=== PATIENT | female | born 1935 | race Caucasian/White ===

== ENCOUNTER 2016-08-04 13:17 | Inpatient (IN) ==
[2016-08-04] MEDS ORDERED: MAGNESIUM SULF RIDER 2 GM in PREMIX 1 EACH IV STA (13:35)
[2016-08-04] MEDS ORDERED: DILTIAZEM 50 MG/10 ML VIAL IV STA (13:36)
--- NOTE | 2016-08-04 13:48 | Emergency Department Note ---
Hellen Sherman Hilary, am scribing for, and in the presence of, Seth Clark MD 13: 39. Amber Sherman James D, MD, personally performed the services described in this documentation, ascribed by Dalila Macedo in my presence, and it is both accurate and complete [id number] . Arrival - Arrival Chief Complaint: Shortness of Breath ED Nursing Triage Note: Brought in by EMS sent [facility] for further evaluation of tachycardia. C/o SOB with exertion-onset 2 weeks ago. Denies CP. Mode of Arrival: Stretcher Limitations: No Limitations Source: Patient, RN Notes Reviewed Time Seen by Provider: 08/04/16 13:30 - History of Present Illness HPI Narrative: Pt is a 81 y/o white female brought into the ED via EMS from [facility] for further evaluation of tachycardia. Pt states she has been out of her Sotalol for a few days. She confirms SOB and irregular heartbeats but denies Chest pain. No other complaints or problems stated in the ED. Onset (ago): hour(s) Consistency: constant Severity: mild Severity scale (1-10): 1 Date of Last Menstrual Period: hysterectomy Allergies/Adverse Reactions: Allergies Allergy/AdvReac Type Severity Reaction Status Date / Time morphine AdvReac Mild ITCHING Verified 04/04/16 15:53 Home Medications: Home Medications Medication Instructions Recorded Confirmed Type ALPRAZolam [Xanax Xr] 0.5 mg PO TID PRN 11/26/14 04/06/16 History Esomeprazole Magnesium [Nexium] 40 mg PO DAILY 11/26/14 04/06/16 History Furosemide 40 mg PO DAILY PRN 11/26/14 04/06/16 History Melatonin 5 mg PO BEDTIME PRN 11/26/14 04/06/16 History Sotalol HCl [Betapace AF] 160 mg PO BID 11/26/14 04/06/16 History Senna Tab [Senokot] 8.6 mg PO DAILY PRN 11/28/14 04/04/16 History oxyCODONE ER [OxyCONTIN] 10 mg PO BID 11/28/14 04/06/16 History Valsartan [Diovan] 160 mg PO BEDTIME 04/04/16 04/06/16 History Review of System - Review of System 12 point system: reviewed and no additional remarkable complaints except as stated - Review of System Constitutional: Absent: fever Respiratory: Present: respiratory distress (SOB) Cardiovascular: Present: palpitations Medical,Surgical,& Family Hx - Medical History Cardio: History of: Cardiac Dysrhythmia (AFIB), Hypertension, [place] (09/2015), Cardiovascular Problems (DR POWELL.) Psychological: History of: Anxiety Disorders Neurology: History of: Peripheral Neuropathy No history of: Seizures HEENT: History of: Eye Problem (CATARACT OS) No history of: Dental Problems Rheumatology: History of;: Rheumatoid Arthritis, Rheumatological Problems Respiratory: History of: Bronchitis, Obstructive Sleep Apnea, Respiratory Problems (FLU VAC- YES; PNEU YES) Genitourinary: History of: Bladder Problem (BLADDER TACT), Problems Gastrointestinal: History of: GERD, GI Problems (CONSTIPATION) Musculoskeletal: History of: Back/Neck Problems, Osteoporosis - Surgical History Cardiac Surgeries: Sugical HX of: Cardiac Catheterization (negative) HEENT Surgeries: Surgical HX of: Eye Surgery (REMOVAL CATARACT OD) Abdominal Surgeries: Surgical HX of: Appendectomy Reproductive Surgeries: Surgical HX of;: Hysterectomy Orthopedic Surgeries: Surgical HX of;: Orthopedic Surgery (BACK SURGERY X4 RIGHT KNEE LEFT KNEE), Total Knee Replacement (RIGHT) - Family History Family History: Reports;: Family Heart Disease (PARENTS) - Social History Smoking Status: Never smoker Frequency of Alcohol Use: None Type of Drug Use: None Exam Physical Examination: GENERAL: This is a well-nourished, well-developed in no apparent distress. VITAL SIGNS: Temperature: 97.4 Pulse: 124 Respiratory: 22 Blood Pressure: 97/ 61 O2 Sat: 99 HEENT: Head is normocephalic and atraumatic. Pupils are equally round and reactive to light. Extraocular movement are intact. Oropharynx is benign with moist mucous membranes. NECK: Neck is soft and supple without tenderness. There are no masses. There is no lymphadenopathy. LUNGS: Lungs are clear to auscultation bilaterally. Chest rises symmetrically. There is no chest wall tenderness. CV: Heart is irregularly irregular with rapid rate without murmurs, rubs, or gallops. ABDOMEN: Abdomen is soft, non-tender to palpation. There are no abnormal masses palpated. There is no organomegaly. Bowel sounds are present and active. SKIN: Skin is warm and dry. No rash. EXTREMITIES: Patient has full range of motion without tenderness. There is no pedal edema. NEUROLOGIC: Awake, alert, and oriented x4. Cranial nerves II through XII are grossly intact. There are no motorsensory deficits. PSYCHIATRIC: Normal affect. Normal mood. Vital Signs: Vital Signs Temperature 97.4 F L 08/04/16 13:25 Pulse Rate 124 H 08/04/16 13:25 Respiratory Rate 22 08/04/16 13:25 Blood Pressure 97/61 08/04/16 13:25 O2 Sat by Pulse Oximetry 99 08/04/16 13:25 Course Course Narrative: Patient was given Cardizem bolus and infusion while in the emergency department. - Consultations Consultation #1: Discussed with Dr. Powell. patient will be admitted to his service. Time: 13:47 Results - Labs CBC & BMP: 08/04/16 13:45 08/04/16 13:45 Lab Results: I have reviewed the patients labs Labs: Laboratory Tests 08/04/16 13:45 Troponin I < 0.015 Laboratory Tests 08/04/16 08/04/16 08/04/16 13:45 13:45 13:45 WBC 7.9 RBC 4.85 Hgb 14.1 Hct 42.8 Plt Count 353 MPV 8.7 L INR 1.1 PT Patient/Control Mix 11.4 Circ Anticoag PTT 31.3 Sodium 138 Potassium 4.0 Chloride 102 Carbon Dioxide 26 BUN 28 H Creatinine 1.30 H BUN/Creatinine Ratio 21.00 H Glucose 150 H Troponin I < 0.015 B-Natriuretic Peptide Total Protein 6.8 Albumin/Globulin Ratio 1.0 L 08/04/16 13:45 WBC RBC Hgb Hct Plt Count MPV INR PT Patient/Control Mix Circ Anticoag PTT Sodium Potassium Chloride Carbon Dioxide BUN Creatinine BUN/Creatinine Ratio Glucose Troponin I B-Natriuretic Peptide 130 H Total Protein Albumin/Globulin Ratio - EKG EKG results: interpreted by ERMD - Impressions EKG: Atrial fib with RVR, rate 128, low voltage QRS, nonspecific ST-T wave changes, normal axis. - Diagnostic Findings Procedure: Chest x-ray: image reviewed by me (Chronic scarring in the lungs with improved mild CHF) Disposition Clinical Impression: Atrial fibrillation with RVR, Noncompliance with medications Case discussed with: patient, patient's family Disposition: Still a Patient Time of Disposition: 13:45
[2016-08-04] MEDS ORDERED: DILTIAZEM 100 MG VIAL.ADD IV ONE (13:52)
[2016-08-04] MEDS ORDERED: DILTIAZEM 50 MG/10 ML VIAL IV ONE (13:53)
[2016-08-04 13:54] LABS: Basophils # 0.1 10*3/uL (0.0-0.2); Basophils % 0.6 % (0.0-0.8); Eosinophils # 0.3 10*3/uL (0.0-0.87); Eosinophils % 3.2 % (0.00-10.9); Hematocrit 42.8 VOL% (35.7-47.0); Hemoglobin 14.1 GM/DL (12.0-16.0); Immature Granulocytes % 0.4 %; Immature Granulocytes Absolute 0.03 #; Lymphocytes # 2.3 10*3/uL (1.4-4.0); Mean Corpuscular HGB Conc 32.9 GM/DL (32-36); Mean Corpuscular Hemoglobin 29 PG (27-34); Mean Corpuscular Volume 88.2 FL (87-102); Mean Platelet Volume 8.7 FL (9.6-12.0); Monocytes # 0.7 10*3/uL (0.11-0.8); Monocytes % 8.7 % (1.7-12.7); Neutrophils # 4.6 10*3/uL (1.4-7.4); Neutrophils % 58.1 % (38.7-73.9); Platelet Count 353 T/CUMM (130-400); Red Blood Count 4.85 MC/CUMM (3.8-5.5); Red Cell Distribution Width 15.2 % (9.3-17.3); White Blood Count 7.9 T/CUMM (4-12)
[2016-08-04] MEDS ORDERED: MAGNESIUM SULF RIDER 50 ML IV ONE (13:56)
[2016-08-04 14:07] LABS: INR 1.1; PT Patient Result 11.4 SECS; Partial Thromboplastin Time 31.3 SECS (0-40)
--- NOTE | 2016-08-04 14:07 | XRay Report ---
Portable chest Date: 08/04/2016 Clinical history: Shortness of breath Comparison: 04/04/2016 Technique: Portable AP sitting chest Findings: The heart is borderline in size with arterial calcifications. Reduced parenchymal findings with stable mediastinum. Degenerative changes are noted. Osteopenia. Impression: Chronic scarring in the lungs with improved mild CHF. PROCEDURE INTERPRETED AT [facility] DEPARTMENT OF RADIOLOGY Final Report Signed by: Dr. Willow Glass
[2016-08-04] MEDS: DILTIAZEM INJ 100 MG in SODIUM CHLORIDE 0.9% 100 ML IV SCH (14:13)
[2016-08-04 14:15] LABS: Alanine Aminotransferase 19 U/L (13-56); Albumin 3.4 G/DL (3.4-5.0); Alkaline Phosphatase 80 U/L (45-117); Aspartate Amino Transferase 20 U/L (0-37); Blood Urea Nitrogen 28 MG/DL (7-18); Calcium 9.3 MG/DL (8.5-10.1); Glucose 150 MG/DL (74-106); Osmolality,Calculated 283.7 MOS/KG (273-304); Sodium 138 MMOL/L (136-145); Total Protein 6.8 G/DL (6.4-8.3); Troponin I Only < 0.015 NG/ML (0.00-0.045)
--- NOTE | 2016-08-04 14:53 | EKG Report ---
Stationary ECG Study [facility] Test Date: 08/04/2016 1:27:23 PM Pat Name: YVETTE URRUTIA Department: Room: Gender: F Intelligence Chief: : 1935 Requested by: Seth Oden Order Number: [id number] Reading MD: TERRY MCARTHUR Intervals [place] Rate: 128 P: 999 NC: 0 QRS: 54 QRSD: 106 T: -1 QT: 322 QTc: 398 Interpretive Statements ATRIAL FIBRILLATION WITH RAPID VENTRICULAR RESPONSE WITH ABERRANT CONDUCTION OR VENTRICULAR PREMATURE COMPLEXES LOW QRS VOLTAGE IN PRECORDIAL LEADS INCOMPLETE RIGHT BUNDLE BRANCH BLOCK Electronically Signed On 08-04-16 15:48:16 CDT by TERRY MCARTHUR [email or web address]
[2016-08-04] MEDS ORDERED: DOCUSATE SODIUM 100 MG CAPSULE PO PRN (15:56)
[2016-08-04] MEDS ORDERED: ACETAMINOPHEN 325 MG TABLET PO PRN (15:56)
[2016-08-04] MEDS ORDERED: MAGNESIUM SULF RIDER 4 GM in PREMIX 1 EACH IV PRN (15:56)
[2016-08-04] MEDS ORDERED: ONDANSETRON 4 MG/2 ML VIAL IV PRN (15:56)
[2016-08-04] MEDS ORDERED: MAGNESIUM SULF RIDER 2 GM in PREMIX 1 EACH IV PRN (15:56)
[2016-08-04] MEDS ORDERED: ZALEPLON 5 MG CAPSULE PO PRN (15:56)
[2016-08-04] MEDS ORDERED: NON-FORMULARY MEDICATION (Esomeprazole Magnesium [Nexium] 40 MG) PO PRN (16:05)
[2016-08-04] MEDS ORDERED: SENNA 8.6 MG TABLET PO PRN (16:05)
[2016-08-04] MEDS ORDERED: ALPRAZolam 0.5 MG TABLET PO PRN (16:05)
[2016-08-04 16:59] LABS: Troponin I Only < 0.015 NG/ML (0.00-0.045)
--- NOTE | 2016-08-04 17:37 | Cardiology History & Physical ---
<Latasha Oliveira E - Last Filed: 08/04/16 17:19> Assessment and Plan - Time spent with patient Time spent with patient: Greater than 30 minutes (due to assessment, plan, and documentation) (1) Atrial fibrillation with RVR Status: Chronic Current Visit: Yes (2) Hypertension Status: Acute Current Visit: Yes (3) Obstructive sleep apnea Status: Chronic Current Visit: No (4) COPD (chronic obstructive pulmonary disease) Status: Chronic Current Visit: Yes (5) Overweight Status: Acute Current Visit: No (6) GERD (gastroesophageal reflux disease) Status: Chronic Current Visit: No (7) High risk medication use Status: Chronic Current Visit: No (8) History of cardioversion Status: Chronic Current Visit: No (9) Osteoarthritis Status: Chronic Current Visit: No History of Present Illness Chief complaint: atrial fib with RVR History of present illness: 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 POWELL Ms. Ware, 81F, has risk factors significant for: Hypertension, sedentary lifestyle. History of atrial fibrillation, COPD, sleep apnea (compliant), chronic back pain, iron deficiency anemia requiring transfusion 03/27/2014. She has not been seen in cardiology clinic since 2014 but was treated by Dr. Powell October 2015 while hospitalized surgery. November 01, 2015 underwent Cardiolite stress testing which revealed EF 58%, no scar, no ischemia, low risk scan. Echocardiogram: EF 50-55%, severe tricuspid regurgitation, PAP 60 mmHg, Grade II DD. Patient presented to the [facility] ED brought by EMS from [facility] for evaluation of tachycardia. She had been out of Sotalol for several days. Upon arrival, she was noted to be in atrial fibrillation with rapid ventricular response. IV Cardizem was initiated and her heart rate came under good control. She acknowledges she has had shortness of breath and palpitations for approximately 1-2 weeks. Denies chest pain, heaviness or tightness. She has required cardioversion x 2 in the past. At this time, her heart rate is better controlled today she remains in atrial fibrillation. IV diltiazem continues and we will transition this to an oral dose as well as restarting her Sotalol. Patient has previously been on Coumadin but was stopped. Will further address during the hospital stay as she is a CHARITO VASC SCORE 3. Assessment/Plan: 1. Atrial fibrillation with RVR - Continue with IV Diltiazem and PO Sotalol for rate control. Will continue to monitor. Will further discuss with Dr. Powell and await additional recommendations. 2. Hypertension - Currently well controlled. Will continue to monitor and adjust accordingly. 3. Sleep apnea - Continue CPAP while asleep. 4. COPD - Continue O2 PRN. Home Medications Medication Instructions Recorded Confirmed Type ALPRAZolam [Xanax Xr] 0.5 mg PO TID PRN 11/26/14 08/04/16 History Esomeprazole Magnesium [Nexium] 40 mg PO DAILY PRN 11/26/14 08/04/16 History Furosemide 40 mg PO QAM 11/26/14 08/04/16 History Sotalol HCl [Betapace AF] 160 mg PO BID 11/26/14 08/04/16 History Senna Tab [Senokot] 8.6 mg PO DAILY PRN 11/28/14 08/04/16 History oxyCODONE ER [OxyCONTIN] 10 mg PO BID 11/28/14 08/04/16 History Oxycodone HCl/Acetaminophen 1 each PO Q12H PRN 08/04/16 08/04/16 History [Oxycodone-Acetaminophen 10-325] Valsartan [Valsartan] 80 mg PO DAILY 08/04/16 08/04/16 History Allergies Allergy/AdvReac Type Severity Reaction Status Date / Time morphine AdvReac Mild ITCHING Verified 04/04/16 15:53 - Constitutional Constitutional: Present: fatigue. Absent: anorexia, chills, headache(s), malaise, weakness - EENT Eyes: Absent: blurry vision, diplopia, loss of vision Ears: Absent: decreased hearing, ear discharge, ear pain Nose, mouth and throat: Absent: dysphagia, epistaxis, headache(s), nasal congestion, neck pain, sinus pressure - Cardiovascular Cardiovascular: Present: dyspnea, dyspnea on exertion, palpitations. Absent: chest pain with activity, claudication, edema, radiating jaw, neck or arm pain, lightheadedness - Respiratory Respiratory: Present: dyspnea, dyspnea on exertion. Absent: cough, pain on inspiration - Gastrointestinal Gastrointestinal: Absent: abdominal pain, bloating, constipation, cramping, diarrhea, dysphagia, heartburn, hematemesis, hematochezia, loose stools, melena , nausea, vomiting - Genitourinary Genitourinary: Absent: dysuria, hematuria, urinary frequency, urinary hesitancy , urinary incontinence - Musculoskeletal Musculoskeletal: Absent: arthralgias, limited range of motion, muscle cramps, muscle weakness - Neurological Neurological: Absent: abnormal gait, abnormal speech, behavioral changes, confusion, dizziness, frequent falls, headache(s), paresthesias, syncope - Psychiatric Psychiatric: Absent: anxiety, confusion, depression, memory loss, panic attacks - Endocrine Endocrine: Present: fatigue. Absent: cold intolerance, heat intolerance - Hematologic/Lymphatic Hematologic/Lymphatic: Absent: easy bleeding, easy bruising Medical,Surgical,& Family Hx - Medical History Cardio: History of: Cardiac Dysrhythmia (AFIB), Hypertension, [place] (09/2015), Cardiovascular Problems (DR POWELL.) Psychological: History of: Anxiety Disorders Neurology: History of: Peripheral Neuropathy No history of: Seizures HEENT: History of: Eye Problem (CATARACT OS) No history of: Dental Problems Rheumatology: History of;: Rheumatoid Arthritis, Rheumatological Problems Respiratory: History of: Bronchitis, Obstructive Sleep Apnea, Respiratory Problems (FLU VAC- YES; PNEU YES) Genitourinary: History of: Bladder Problem (BLADDER TACT), Problems Gastrointestinal: History of: GERD, GI Problems (CONSTIPATION) Musculoskeletal: History of: Back/Neck Problems, Osteoporosis - Surgical History Cardiac Surgeries: Sugical HX of: Cardiac Catheterization (negative) HEENT Surgeries: Surgical HX of: Eye Surgery (REMOVAL CATARACT OD) Abdominal Surgeries: Surgical HX of: Appendectomy Reproductive Surgeries: Surgical HX of;: Hysterectomy Orthopedic Surgeries: Surgical HX of;: Orthopedic Surgery (BACK SURGERY X4 RIGHT KNEE LEFT KNEE), Total Knee Replacement (RIGHT) - Family History Family History: Reports;: Family Heart Disease (PARENTS) - Social History Smoking Status: Never smoker Frequency of Alcohol Use: None Type of Drug Use: None Lives With:: Alone Functional capacity: independent ambulation Cardiology Physical Exam - Constitutional Vitals: Vital Signs Temp Pulse Resp BP Pulse Ox 98.0 F 83 20 99/73 97 08/04/16 16:02 08/04/16 16:02 08/04/16 16:02 08/04/16 16:02 08/04/16 16:02 Intake and Output 08/04/16 08/04/16 08/04/16 06:59 14:59 22:59 Intake Total 50 / 50 Balance 50 / 50 Intake: IV 50 / 50 Magnesium Sulf John 2 gm 50 / 50 /50 ml In Premix 1 Each @ 25 mls/hr IV 1X ED STA Rx#:[id number] Other: Weight 213 lb 215 lb 5 oz Patient Weight 08/05/16 06:59 Weight 215 lb 5 oz Exam: General appearance: Pleasant and cooperative. Normal weight, no acute distress. - Head Head exam: Present: normal inspection, normocephalic, atraumatic. Absent: hematoma, laceration - Eye Eye exam: Present: EOMI. Absent: conjunctival injection, nystagmus, periorbital swelling, scleral icterus, laceration to eyelids Pupils: Present: PERRL. Absent: constricted, dilated, fixed, irregular, unequal - ENT ENT exam: Present: normal exam, normal external ear exam - Neck Neck exam: Present: normal inspection. Absent: lymphadenopathy, meningismus, tenderness, thyromegaly - Respiratory Respiratory exam: Present: clear to auscultation bilaterally. Absent: accessory muscle use, chest wall tenderness - Cardiovascular Cardiovascular exam: Present: Irregular rate and rhythm. Absent: carotid bruit , gallop, JVD, rubs - GI/Abdominal GI/Abdominal exam: Present: normal bowel sounds, soft. Absent: distended, firm , guarding, hernia, mass, tenderness, rebound. - Extremities Exam Extremities exam: Present: normal inspection, normal capillary refill. Upper extremity pulses 2+. Lower extremity pulses 2+. Absent: calf tenderness, edema -Musculoskeletal Exam Musculoskeletal: Present: No Fluid Collection, No Pain, Normal Range of Motion - Back Exam Back exam: Present: normal inspection. Absent: muscle spasm, vertebral tenderness - Neurological Exam Neurological exam: Present: alert, oriented X3, grossly intact without resting or essential tremor - Psychiatric Psychiatric exam: Present: normal affect, normal mood - Skin Skin exam: Present: normal color, warm, dry, intact. Absent: cyanosis, diaphoretic, rash, urticaria Result/EKG - Labs CBC & BMP: 08/04/16 13:45 08/04/16 13:45 Lab Results: I have reviewed the past 24 hour labs Labs: Laboratory Results - last 24 hr 08/04/16 08/04/16 08/04/16 13:45 13:45 13:45 WBC 7.9 RBC 4.85 Hgb 14.1 Hct 42.8 MCV 88.2 MCH 29 MCHC 32.9 RDW 15.2 Plt Count 353 MPV 8.7 L Neut % (Auto) 58.1 Lymph % (Auto) 29.0 [place] % (Auto) 8.7 Eos % (Auto) 3.2 Baso % (Auto) 0.6 Neut # (Auto) 4.6 Lymph # (Auto) 2.3 [place] # (Auto) 0.7 Eos # (Auto) 0.3 Baso # (Auto) 0.1 Immature Gran % 0.4 Nucleated RBC % 0.0 Immature Gran # 0.03 Nucleated RBCs # 0.00 INR 1.1 PT Patient/Control Mix 11.4 Circ Anticoag PTT 31.3 Sodium 138 Potassium 4.0 Chloride 102 Carbon Dioxide 26 Anion Gap 14.0 BUN 28 H Creatinine 1.30 H GFR Calculation 45 BUN/Creatinine Ratio 21.00 H Glucose 150 H Calculated Osmolality 283.7 Calcium 9.3 Magnesium 2.0 Total Bilirubin 0.40 AST 20 ALT 19 Alkaline Phosphatase 80 Total Creatine Kinase CK-MB (CK-2) Troponin I < 0.015 B-Natriuretic Peptide Total Protein 6.8 Albumin 3.4 Globulin 3.4 Albumin/Globulin Ratio 1.0 L TSH 3rd Generation 08/04/16 08/04/16 08/04/16 13:45 16:13 16:14 WBC RBC Hgb Hct MCV MCH MCHC RDW Plt Count MPV Neut % (Auto) Lymph % (Auto) [place] % (Auto) Eos % (Auto) Baso % (Auto) Neut # (Auto) Lymph # (Auto) [place] # (Auto) Eos # (Auto) Baso # (Auto) Immature Gran % Nucleated RBC % Immature Gran # Nucleated RBCs # INR PT Patient/Control Mix Circ Anticoag PTT Sodium Potassium Chloride Carbon Dioxide Anion Gap BUN Creatinine GFR Calculation BUN/Creatinine Ratio Glucose Calculated Osmolality Calcium Magnesium Total Bilirubin AST ALT Alkaline Phosphatase Total Creatine Kinase 21 L CK-MB (CK-2) < 1.0 Troponin I < 0.015 B-Natriuretic Peptide 130 H Total Protein Albumin Globulin Albumin/Globulin Ratio TSH 3rd Generation 0.811 - EKG EKG results: interpreted by me EKG shows: atrial fibrillation <Yo Powell - Last Filed: 08/04/16 17:47> History of Present Illness History of present illness: Cardiology addendum 81-year-old woman with. Paroxysmal atrial fibrillation on sotalol. She ran out of medications several weeks ago and presents with increased shortness of breath and recurrent atrial fibrillation. Currently on IV Cardizem and sotalol restarted. Chest x-ray shows cardiomegaly but no heart failure. Negative troponin. BNP 130. EKG shows atrial fib with ST-T wave changes. Status post cardioversion January 24, 2011 for first episode of atrial fib. Status post cardioversion April 03, 2014 for recurrent atrial fib. Patient does have chronic hypertension. History of GE reflux. The patient lives alone. Her son Cristopher and [id number] Jennifer visit daily. She does have obstructive apnea and has been noncompliant with CPAP. She has chronic dyspnea and easy fatigability. She has chronic back pain requiring analgesics and is felt the pain clinic by Dr. Zavala. She has a history of iron deficient anemia requiring transfusion March 27, 2014. She has bilateral shoulder arthritis and degenerative bilateral knee arthritis limits her mobility. She had a normal Lexiscan cardiac stress test April 22, 2014 to 57%. Plan IV Cardizem restart sotalol 160 mg twice daily Echo Doppler CPAP mask nightly reemphasized. Cardiology Physical Exam - Constitutional Vitals: Vital Signs Temp Pulse Resp BP Pulse Ox 98.0 F 83 20 99/73 97 08/04/16 16:02 08/04/16 16:02 08/04/16 16:02 08/04/16 16:02 08/04/16 16:02 Intake and Output 08/04/16 08/04/16 08/04/16 07:59 15:59 23:59 Intake Total 50 / 50 Balance 50 / 50 Intake: IV 50 / 50 Magnesium Sulf John 2 gm 50 / 50 /50 ml In Premix 1 Each @ 25 mls/hr IV 1X ED STA Rx#:[id number] Other: Weight 96.615 kg 97.664 kg Patient Weight 08/04/16 23:59 Weight 97.664 kg Result/EKG - Labs CBC & BMP: 08/04/16 13:45 08/04/16 13:45 Labs: Laboratory Results - last 24 hr 08/04/16 08/04/16 08/04/16 13:45 13:45 13:45 WBC 7.9 RBC 4.85 Hgb 14.1 Hct 42.8 MCV 88.2 MCH 29 MCHC 32.9 RDW 15.2 Plt Count 353 MPV 8.7 L Neut % (Auto) 58.1 Lymph % (Auto) 29.0 [place] % (Auto) 8.7 Eos % (Auto) 3.2 Baso % (Auto) 0.6 Neut # (Auto) 4.6 Lymph # (Auto) 2.3 [place] # (Auto) 0.7 Eos # (Auto) 0.3 Baso # (Auto) 0.1 Immature Gran % 0.4 Nucleated RBC % 0.0 Immature Gran # 0.03 Nucleated RBCs # 0.00 INR 1.1 PT Patient/Control Mix 11.4 Circ Anticoag PTT 31.3 Sodium 138 Potassium 4.0 Chloride 102 Carbon Dioxide 26 Anion Gap 14.0 BUN 28 H Creatinine 1.30 H GFR Calculation 45 BUN/Creatinine Ratio 21.00 H Glucose 150 H Calculated Osmolality 283.7 Calcium 9.3 Magnesium 2.0 Total Bilirubin 0.40 AST 20 ALT 19 Alkaline Phosphatase 80 Total Creatine Kinase CK-MB (CK-2) Troponin I < 0.015 B-Natriuretic Peptide Total Protein 6.8 Albumin 3.4 Globulin 3.4 Albumin/Globulin Ratio 1.0 L TSH 3rd Generation 08/04/16 08/04/16 08/04/16 13:45 16:13 16:14 WBC RBC Hgb Hct MCV MCH MCHC RDW Plt Count MPV Neut % (Auto) Lymph % (Auto) [place] % (Auto) Eos % (Auto) Baso % (Auto) Neut # (Auto) Lymph # (Auto) [place] # (Auto) Eos # (Auto) Baso # (Auto) Immature Gran % Nucleated RBC % Immature Gran # Nucleated RBCs # INR PT Patient/Control Mix Circ Anticoag PTT Sodium Potassium Chloride Carbon Dioxide Anion Gap BUN Creatinine GFR Calculation BUN/Creatinine Ratio Glucose Calculated Osmolality Calcium Magnesium Total Bilirubin AST ALT Alkaline Phosphatase Total Creatine Kinase 21 L CK-MB (CK-2) < 1.0 Troponin I < 0.015 B-Natriuretic Peptide 130 H Total Protein Albumin Globulin Albumin/Globulin Ratio TSH 3rd Generation 0.811
[2016-08-04] MEDS: SOTALOL 80 MG TABLET PO SCH (20:22)
[2016-08-04] MEDS: oxyCODONE/ACETAMINOPHEN 5-325 MG TABLET PO PRN (20:22)
[2016-08-04] MEDS: oxyCODONE ER 10 MG TABLET PO SCH (20:22)
[2016-08-05 01:15] LABS: Basophils % 0.5 % (0.0-0.8); Eosinophils # 0.3 10*3/uL (0.0-0.87); Eosinophils % 3.3 % (0.00-10.9); Hematocrit 39.2 VOL% (35.7-47.0); Hemoglobin 12.6 GM/DL (12.0-16.0); Immature Granulocytes % 0.3 %; Immature Granulocytes Absolute 0.02 #; Lymphocytes # 2.6 10*3/uL (1.4-4.0); Lymphocytes % 34.8 % (21.3-54.2); Mean Corpuscular HGB Conc 32.1 GM/DL (32-36); Mean Corpuscular Hemoglobin 29 PG (27-34); Mean Corpuscular Volume 90.5 FL (87-102); Mean Platelet Volume 8.7 FL (9.6-12.0); Monocytes # 0.8 10*3/uL (0.11-0.8); Monocytes % 10.3 % (1.7-12.7); Neutrophils # 3.8 10*3/uL (1.4-7.4); Neutrophils % 50.8 % (38.7-73.9); Platelet Count 337 T/CUMM (130-400); Red Blood Count 4.33 MC/CUMM (3.8-5.5); Red Cell Distribution Width 15.1 % (9.3-17.3); White Blood Count 7.5 T/CUMM (4-12)
[2016-08-05 01:51] LABS: Troponin I Only < 0.015 NG/ML (0.00-0.045)
[2016-08-05 02:05] LABS: Alanine Aminotransferase 19 U/L (13-56); Albumin 3.1 G/DL (3.4-5.0); Alkaline Phosphatase 77 U/L (45-117); Aspartate Amino Transferase 20 U/L (0-37); Bilirubin,Total < 0.39 MG/DL (0.2-1.0); Blood Urea Nitrogen 27 MG/DL (7-18); Calcium 8.7 MG/DL (8.5-10.1); Cholesterol 216 MG/DL (50-200); Glucose 128 MG/DL (74-106); HDL Cholesterol 33 MG/DL (40-60); Osmolality,Calculated 283.5 MOS/KG (273-304); Potassium 4.8 MMOL/L (3.5-5.1); Risk Ratio 6.55; Sodium 139 MMOL/L (136-145); Total Protein 6.1 G/DL (6.4-8.3); Triglycerides 175 MG/DL (2-150)
--- NOTE | 2016-08-05 06:59 | EKG Report ---
Stationary ECG Study [facility] Test Date: 08/05/2016 7:00 AM Pat Name: YVETTE URRUTIA Department: Room: 288 Gender: F Supervisor Plastics: TYLER : 1935 Requested by: Ivy Hedrick Order Number: [id number] Reading MD: MICHELLE MARIN Intervals [place] Rate: 79 P: 999 FL: 0 QRS: 71 QRSD: 104 T: 66 QT: 386 QTc: 421 Interpretive Statements ATRIAL FIBRILLATION ABNORMAL RHYTHM ECG Electronically Signed On 08-05-16 12:13:06 CDT by MICHELLE MARIN [email or web address]
[2016-08-05] MEDS: VALSARTAN 80 MG TABLET PO SCH (08:54)
[2016-08-05] MEDS: SOTALOL 80 MG TABLET PO SCH ×2 (08:54→21:34)
[2016-08-05] MEDS: oxyCODONE ER 10 MG TABLET PO SCH ×2 (08:55→21:35)
[2016-08-05] MEDS: PANTOPRAZOLE 40 MG TABLET PO SCH (08:55)
[2016-08-05] MEDS: FUROSEMIDE 40 MG TABLET PO SCH (08:55)
--- NOTE | 2016-08-05 10:46 | Cardiology Progress Note ---
Cardiology - PN: Subj Interval history: Cardiology note 81-year-old woman admitted with recurrent paroxysmal atrial fibrillation. She ran out of sotalol several days ago. Telemetry shows atrial fib ventricular rate around 100 on IV Cardizem and sotalol She has chronic dyspnea. Blood pressure 126/76 in the left arm Decreased breath sounds but fairly clear Irregular rhythm no murmur Impression Recurrent atrial fibrillation noncompliant with sotalol Obstructive sleep apnea noncompliant with CPAP. Chronic back pain requiring analgesics and followed at the pain clinic with Dr. Zavala. History of iron deficiency anemia requiring transfusion March 27, 2014. Bilateral shoulder and knee arthritis which limits her mobility. Status post cardioversion January 24, 2011 and April 03, 2014 Normal Lexiscan cardiac stress test April 22, 2014 to 57%. Plan IV Cardizem Sotalol 160 mg twice daily Eliquis 2.5 mg twice daily CPAP mask nightly Echo today Her son Cristopher and [id number] Jennifer are not present at this time Exam (Progress Note) - Constitutional Vitals: Period Temp Pulse Resp BP Sys/Abrams Pulse Ox Last 24 Hr 96.3 F-98.0 F 75-124 16-22 81-138/46-81 94-99 Result/EKG - Labs CBC & BMP: 08/05/16 01:02 08/05/16 01:02 Labs: Laboratory Results - last 24 hr 08/04/16 08/04/16 08/04/16 13:45 13:45 13:45 WBC 7.9 RBC 4.85 Hgb 14.1 Hct 42.8 MCV 88.2 MCH 29 MCHC 32.9 RDW 15.2 Plt Count 353 MPV 8.7 L Neut % (Auto) 58.1 Lymph % (Auto) 29.0 [place] % (Auto) 8.7 Eos % (Auto) 3.2 Baso % (Auto) 0.6 Neut # (Auto) 4.6 Lymph # (Auto) 2.3 [place] # (Auto) 0.7 Eos # (Auto) 0.3 Baso # (Auto) 0.1 Immature Gran % 0.4 Nucleated RBC % 0.0 Immature Gran # 0.03 Nucleated RBCs # 0.00 INR 1.1 PT Patient/Control Mix 11.4 Circ Anticoag PTT 31.3 Sodium 138 Potassium 4.0 Chloride 102 Carbon Dioxide 26 Anion Gap 14.0 BUN 28 H Creatinine 1.30 H GFR Calculation 45 BUN/Creatinine Ratio 21.00 H Glucose 150 H Calculated Osmolality 283.7 Calcium 9.3 Magnesium 2.0 Total Bilirubin 0.40 AST 20 ALT 19 Alkaline Phosphatase 80 Total Creatine Kinase CK-MB (CK-2) Troponin I < 0.015 B-Natriuretic Peptide Total Protein 6.8 Albumin 3.4 Globulin 3.4 Albumin/Globulin Ratio 1.0 L Triglycerides Cholesterol LDL Cholesterol VLDL Cholesterol HDL Cholesterol Heart Disease Risk Ratio TSH 3rd Generation 08/04/16 08/04/16 08/04/16 13:45 16:13 16:14 WBC RBC Hgb Hct MCV MCH MCHC RDW Plt Count MPV Neut % (Auto) Lymph % (Auto) [place] % (Auto) Eos % (Auto) Baso % (Auto) Neut # (Auto) Lymph # (Auto) [place] # (Auto) Eos # (Auto) Baso # (Auto) Immature Gran % Nucleated RBC % Immature Gran # Nucleated RBCs # INR PT Patient/Control Mix Circ Anticoag PTT Sodium Potassium Chloride Carbon Dioxide Anion Gap BUN Creatinine GFR Calculation BUN/Creatinine Ratio Glucose Calculated Osmolality Calcium Magnesium Total Bilirubin AST ALT Alkaline Phosphatase Total Creatine Kinase 21 L CK-MB (CK-2) < 1.0 Troponin I < 0.015 B-Natriuretic Peptide 130 H Total Protein Albumin Globulin Albumin/Globulin Ratio Triglycerides Cholesterol LDL Cholesterol VLDL Cholesterol HDL Cholesterol Heart Disease Risk Ratio TSH 3rd Generation 0.811 08/05/16 08/05/16 08/05/16 01:02 01:02 01:02 WBC 7.5 RBC 4.33 Hgb 12.6 Hct 39.2 MCV 90.5 MCH 29 MCHC 32.1 RDW 15.1 Plt Count 337 MPV 8.7 L Neut % (Auto) 50.8 Lymph % (Auto) 34.8 [place] % (Auto) 10.3 Eos % (Auto) 3.3 Baso % (Auto) 0.5 Neut # (Auto) 3.8 Lymph # (Auto) 2.6 [place] # (Auto) 0.8 Eos # (Auto) 0.3 Baso # (Auto) 0.0 Immature Gran % 0.3 Nucleated RBC % 0.0 Immature Gran # 0.02 Nucleated RBCs # 0.00 INR PT Patient/Control Mix Circ Anticoag PTT Sodium 139 Potassium 4.8 Chloride 103 Carbon Dioxide 28 Anion Gap 12.8 BUN 27 H Creatinine 1.10 H GFR Calculation 56 BUN/Creatinine Ratio 24.00 H Glucose 128 H Calculated Osmolality 283.5 Calcium 8.7 Magnesium Total Bilirubin < 0.39 AST 20 ALT 19 Alkaline Phosphatase 77 Total Creatine Kinase 19 L CK-MB (CK-2) < 1.0 Troponin I < 0.015 B-Natriuretic Peptide Total Protein 6.1 L Albumin 3.1 L Globulin 3.0 Albumin/Globulin Ratio 1.0 L Triglycerides 175 H Cholesterol 216 H LDL Cholesterol 158.0 VLDL Cholesterol 35.0 HDL Cholesterol 33 L Heart Disease Risk Ratio 6.55 TSH 3rd Generation
--- NOTE | 2016-08-05 11:11 | ECHO Report ---
Ailyn Ware Exam Date: 08/05/2016 09:52 Referring Physician: Technologist: Abida Rubio LRCP Age: 81 Ht (in): 64 Wt (lb): 215 Gender: F Exam Location: [facility] Echo Indications: GERD, RONNIE, A fib, COPD, HTN BP: 112 / 67 HR: 103 Rhythm: Atrial fibrillation Technical Quality: Fair IMPRESSIONS EF 50-55 %. Mildly increased right ventricular size. Moderately increased right atrial size. Moderately increased left atrial size. Mildly thickened mitral valve. Mild mitral valve regurgitation. Aortic valve sclerosis. No aortic valve regurgitation. Moderate tricuspid valve regurgitation. PAP50 mmHG. Pulmonic valve not well visualized. No pericardial effusion. Normal size aortic root and proximal ascending aorta. MEASUREMENTS (Male / Female) Normal Values 2D ECHO LV Diastolic Diameter PLAX 3.4 cm 4.2 - 5.9 / 3.9 - 5.3 cm LV Systolic Diameter PLAX 2.8 cm LV Fractional Shortening PLAX 19.8 % IVS Diastolic Thickness 1.7 cm 0.6 - 1.0 / 0.6 - 0.9 cm LVPW Diastolic Thickness 1.4 cm 0.6 - 1.0 / 0.6 - 0.9 cm RV Internal Dim ED PLAX 3.1 cm Aortic Root Diameter 2.3 cm LA Systolic Diameter LX 5.0 cm 3.0 - 4.0 / 2.7 - 3.8 cm DOPPLER TR Peak Velocity 267.0 cm/s TR Peak Gradient 28.5 mmHg FINDINGS Left Ventricle EF 50-55 %. Right Ventricle Mildly increased right ventricular size. Right Atrium Moderately increased right atrial size. Left Atrium Moderately increased left atrial size. Mitral Valve Mildly thickened mitral valve. Mild mitral valve regurgitation. Aortic Valve Aortic valve sclerosis. No aortic valve regurgitation. Tricuspid Valve Morphologically normal tricuspid valve. Moderate tricuspid valve regurgitation. PAP50 mmHG. Pulmonic Valve Pulmonic valve not well visualized. Pericardium No pericardial effusion. Aorta Normal size aortic root and proximal ascending aorta. Endy Powell (Electronically Signed) Final Date: 05 August 2016 11:10
[2016-08-05] MEDS: DILTIAZEM INJ 100 MG in SODIUM CHLORIDE 0.9% 100 ML IV SCH (14:43)
[2016-08-05] MEDS: oxyCODONE/ACETAMINOPHEN 5-325 MG TABLET PO PRN (15:58)
[2016-08-05] MEDS: APIXABAN 2.5 MG TABLET PO SCH (21:36)
[2016-08-06] MEDS: oxyCODONE/ACETAMINOPHEN 5-325 MG TABLET PO PRN (00:09)
[2016-08-06 06:04] LABS: Basophils # 0.1 10*3/uL (0.0-0.2); Basophils % 0.8 % (0.0-0.8); Eosinophils # 0.3 10*3/uL (0.0-0.87); Eosinophils % 3.9 % (0.00-10.9); Hematocrit 38.8 VOL% (35.7-47.0); Hemoglobin 12.5 GM/DL (12.0-16.0); Immature Granulocytes % 0.5 %; Immature Granulocytes Absolute 0.04 #; Lymphocytes # 3.1 10*3/uL (1.4-4.0); Lymphocytes % 41.4 % (21.3-54.2); Mean Corpuscular HGB Conc 32.2 GM/DL (32-36); Mean Corpuscular Hemoglobin 29 PG (27-34); Mean Corpuscular Volume 89.2 FL (87-102); Mean Platelet Volume 8.8 FL (9.6-12.0); Monocytes # 0.7 10*3/uL (0.11-0.8); Monocytes % 9.6 % (1.7-12.7); Neutrophils # 3.3 10*3/uL (1.4-7.4); Neutrophils % 43.8 % (38.7-73.9); Platelet Count 376 T/CUMM (130-400); Red Blood Count 4.35 MC/CUMM (3.8-5.5); Red Cell Distribution Width 14.9 % (9.3-17.3); White Blood Count 7.4 T/CUMM (4-12)
[2016-08-06 06:36] LABS: Calcium 8.9 MG/DL (8.5-10.1); Magnesium 1.9 MG/DL (1.8-2.4); Osmolality,Calculated 278.7 MOS/KG (273-304); Potassium 4.3 MMOL/L (3.5-5.1)
[2016-08-06] MEDS: PANTOPRAZOLE 40 MG TABLET PO SCH (08:20)
[2016-08-06] MEDS: FUROSEMIDE 40 MG TABLET PO SCH (08:20)
[2016-08-06] MEDS: VALSARTAN 80 MG TABLET PO SCH (08:20)
[2016-08-06] MEDS: APIXABAN 2.5 MG TABLET PO SCH ×2 (08:20→21:16)
[2016-08-06] MEDS: SOTALOL 80 MG TABLET PO SCH ×2 (08:20→21:16)
[2016-08-06] MEDS: oxyCODONE ER 10 MG TABLET PO SCH ×2 (08:20→21:16)
--- NOTE | 2016-08-06 11:38 | Cardiology Progress Note ---
Cardiology - PN: Subj Interval history: Cardiology note 81-year-old woman admitted with recurrent atrial fibrillation and shortness of breath. She ran out of sotalol several days ago. Blood pressure 138/80 Telemetry shows atrial ventricular rate around 100 O2 sat 96% Irregular rhythm no murmur decreased breath sounds but clear Abdomen benign No leg edema Lab data today Sodium 138 potassium 4.3 chloride 100 CO2 30 BUN 21 creatinine 0.9 Hemoglobin 12.5 hematocrit 30.8 white count 7.4 Impression Recurrent atrial fibrillation noncompliant with sotalol Status post cardioversion January 24, 2011 and April 03, 2014 Obstructive sleep apnea noncompliant with CPAP Chronic back pain requiring analgesics History of iron deficiency anemia requiring transfusion March 27, 2014 Normal Lexiscan cardiac stress test April 22, 2014 EF 57% Plan IV Cardizem Sotalol 160 mg twice daily Eliquis 2.5 g twice daily CPAP mask nightly I spoke with her son Cristopher who will bring in her CPAP mask Exam (Progress Note) - Constitutional Vitals: Period Temp Pulse Resp BP Sys/Abrams Pulse Ox Last 24 Hr 97.2 F-98.3 F 63-113 16-18 87-114/52-73 93-97 Result/EKG - Labs CBC & BMP: 08/06/16 05:25 08/06/16 05:25 Labs: Laboratory Results - last 24 hr 08/06/16 08/06/16 05:25 05:25 WBC 7.4 RBC 4.35 Hgb 12.5 Hct 38.8 MCV 89.2 MCH 29 MCHC 32.2 RDW 14.9 Plt Count 376 MPV 8.8 L Neut % (Auto) 43.8 Lymph % (Auto) 41.4 [place] % (Auto) 9.6 Eos % (Auto) 3.9 Baso % (Auto) 0.8 Neut # (Auto) 3.3 Lymph # (Auto) 3.1 [place] # (Auto) 0.7 Eos # (Auto) 0.3 Baso # (Auto) 0.1 Immature Gran % 0.5 Nucleated RBC % 0.0 Immature Gran # 0.04 Nucleated RBCs # 0.00 Sodium 138 Potassium 4.3 Chloride 100 Carbon Dioxide 31 Anion Gap 11.3 BUN 21 H Creatinine 0.90 GFR Calculation 71 BUN/Creatinine Ratio 23.00 H Glucose 112 H Calculated Osmolality 278.7 Calcium 8.9 Magnesium 1.9
[2016-08-06] MEDS: DILTIAZEM INJ 100 MG in SODIUM CHLORIDE 0.9% 100 ML IV SCH (15:28)
[2016-08-07 04:21] LABS: Basophils % 0.5 % (0.0-0.8); Eosinophils # 0.2 10*3/uL (0.0-0.87); Eosinophils % 2.9 % (0.00-10.9); Hematocrit 40.6 VOL% (35.7-47.0); Hemoglobin 13.1 GM/DL (12.0-16.0); Immature Granulocytes % 0.4 %; Immature Granulocytes Absolute 0.03 #; Lymphocytes # 3.2 10*3/uL (1.4-4.0); Lymphocytes % 39.5 % (21.3-54.2); Mean Corpuscular HGB Conc 32.3 GM/DL (32-36); Mean Corpuscular Hemoglobin 29 PG (27-34); Mean Corpuscular Volume 88.5 FL (87-102); Mean Platelet Volume 9.2 FL (9.6-12.0); Monocytes # 0.7 10*3/uL (0.11-0.8); Monocytes % 8.5 % (1.7-12.7); Neutrophils % 48.2 % (38.7-73.9); Platelet Count 386 T/CUMM (130-400); Red Blood Count 4.59 MC/CUMM (3.8-5.5); Red Cell Distribution Width 14.8 % (9.3-17.3); White Blood Count 8.2 T/CUMM (4-12)
[2016-08-07 04:59] LABS: Calcium 8.9 MG/DL (8.5-10.1); Magnesium 1.7 MG/DL (1.8-2.4); Osmolality,Calculated 278.7 MOS/KG (273-304); Potassium 4.1 MMOL/L (3.5-5.1)
[2016-08-07] MEDS: PANTOPRAZOLE 40 MG TABLET PO SCH (08:42)
[2016-08-07] MEDS: SOTALOL 80 MG TABLET PO SCH ×2 (08:42→20:48)
[2016-08-07] MEDS: VALSARTAN 80 MG TABLET PO SCH (08:42)
[2016-08-07] MEDS: FUROSEMIDE 40 MG TABLET PO SCH (08:42)
[2016-08-07] MEDS: APIXABAN 2.5 MG TABLET PO SCH ×2 (08:42→20:48)
[2016-08-07] MEDS: oxyCODONE ER 10 MG TABLET PO SCH ×2 (08:42→20:48)
--- NOTE | 2016-08-07 10:36 | History and Physical Update ---
Sedation H&P Update - History and Physical H&P was reviewed, the patient examined and there: are no changes in the patients condition since last H&P was completed. - Dictation Physical: refer to H&P completed by admitting physician - Physical Exam Mental Status: alert and oriented Heart: regular rate and rhythm Lung: clear to auscultation Abdomen: within normal limits Vitals: within normal limits - Sedation Plan for Sedation: moderate Patient Consent: Procedure disscussed with patient and patinet has consented., Risks and benefits were discussed with patient,including infection,, bleeding, injury to surrounding structures, seizure, temporary nerve, Patient understands and accepts potential risks/benefits and agrees to, proceed. ASA Class: II Airway Assessment: Class II: Soft palate, uvula, fauces visible
--- NOTE | 2016-08-07 10:36 | Cardiology Progress Note ---
Cardiology - PN: Subj Interval history: Cardiology note 81-year-old woman admitted with recurrent atrial fibrillation and shortness of breath. Back on sotalol 160 mg twice daily and Eliquis 2.5 twice daily for anticoagulation. Telemetry shows atrial fib ventricular rate around 90 Blood pressure 110/72. O2 sat is 95% on 2 L. Irregular rhythm no murmur Decreased breath sounds but clear Abdomen obese soft benign No leg edema Lab data today White count 8.2 hemoglobin 13.1 hematocrit 40.6 Sodium 138 potassium 4.1 chloride 102 CO2 28 BUN 22 creatinine 0.80 Glucose 117 magnesium 1.7 Impression Recurrent atrial fibrillation noncompliant with sotalol Status post cardioversion January 24, 2011 and April 03, 2014 Obstructive sleep apnea noncompliant with CPAP Chronic back pain requiring analgesics History iron deficiency anemia requiring transfusion March 27, 2014 Obesity Normal Lexiscan cardiac stress test April 22, 2014 at 57% Chronic multifactorial dyspnea Plan Continue sotalol 160 mg twice daily Continue Eliquis 2.5 g twice daily CPAP mask nightly Cardioversion tomorrow. Procedure risk benefits discussed with patient with nurse Ronquillo present for the full discussion. All questions answered. She agrees to proceed as outlined. Exam (Progress Note) - Constitutional Vitals: Period Temp Pulse Resp BP Sys/Abrams Pulse Ox Last 24 Hr 96.9 F-98.2 F 96-115 16-18 93-125/68-89 94-98 Result/EKG - Labs CBC & BMP: 08/07/16 03:00 08/07/16 03:00 Labs: Laboratory Results - last 24 hr 08/07/16 08/07/16 03:00 03:00 WBC 8.2 RBC 4.59 Hgb 13.1 Hct 40.6 MCV 88.5 MCH 29 MCHC 32.3 RDW 14.8 Plt Count 386 MPV 9.2 L Neut % (Auto) 48.2 Lymph % (Auto) 39.5 [place] % (Auto) 8.5 Eos % (Auto) 2.9 Baso % (Auto) 0.5 Neut # (Auto) 4.0 Lymph # (Auto) 3.2 [place] # (Auto) 0.7 Eos # (Auto) 0.2 Baso # (Auto) 0.0 Immature Gran % 0.4 Nucleated RBC % 0.0 Immature Gran # 0.03 Nucleated RBCs # 0.00 Sodium 138 Potassium 4.1 Chloride 102 Carbon Dioxide 28 Anion Gap 12.1 BUN 22 H Creatinine 0.80 GFR Calculation 82 BUN/Creatinine Ratio 27.00 H Glucose 112 H Calculated Osmolality 278.7 Calcium 8.9 Magnesium 1.7 L
[2016-08-07] MEDS: SODIUM CHLORIDE 0.9% 1,000 ML IV SCH (16:43)
[2016-08-07] MEDS: DILTIAZEM INJ 100 MG in SODIUM CHLORIDE 0.9% 100 ML IV SCH (16:46)
[2016-08-08 05:27] LABS: Basophils # 0.1 10*3/uL (0.0-0.2); Basophils % 0.7 % (0.0-0.8); Eosinophils # 0.2 10*3/uL (0.0-0.87); Eosinophils % 1.8 % (0.00-10.9); Hematocrit 42.9 VOL% (35.7-47.0); Hemoglobin 13.8 GM/DL (12.0-16.0); Immature Granulocytes % 0.3 %; Immature Granulocytes Absolute 0.03 #; Lymphocytes # 3.6 10*3/uL (1.4-4.0); Lymphocytes % 39.9 % (21.3-54.2); Mean Corpuscular HGB Conc 32.2 GM/DL (32-36); Mean Corpuscular Hemoglobin 29 PG (27-34); Mean Corpuscular Volume 89.7 FL (87-102); Mean Platelet Volume 8.8 FL (9.6-12.0); Monocytes # 0.9 10*3/uL (0.11-0.8); Monocytes % 9.8 % (1.7-12.7); Neutrophils # 4.3 10*3/uL (1.4-7.4); Neutrophils % 47.5 % (38.7-73.9); Platelet Count 397 T/CUMM (130-400); Red Blood Count 4.78 MC/CUMM (3.8-5.5); Red Cell Distribution Width 14.8 % (9.3-17.3)
[2016-08-08 05:57] LABS: Calcium 8.7 MG/DL (8.5-10.1); Magnesium 2.2 MG/DL (1.8-2.4); Osmolality,Calculated 283.4 MOS/KG (273-304); Potassium 4.4 MMOL/L (3.5-5.1)
[2016-08-08] MEDS ORDERED: MIDAZOLAM 10 MG/2 ML VIAL ONE ×2 (08:35→09:18)
[2016-08-08] MEDS ORDERED: FLUMAZENIL 0.5 MG/5 ML VIAL IV ONE (09:09)
--- NOTE | 2016-08-08 09:45 | Event Note ---
Event note synchronized Cardioversion procedure note Preop diagnosis recurrent atrial fibrillation Postop diagnosis same The patient developed recurrent atrial fibrillation. She was restarted on sotalol 160 mg twice daily and Eliquis 2.5 mg twice daily. She failed to convert chemically. The cardioversion procedure discussed with the patient and with her son Cristopher and daughter Jennifer, all questions answered and consent form was signed. Continuous O2 sat monitoring was performed. The patient received IV Versed to achieve and maintain adequate anesthesia throughout the procedure. Apical and sternal patches were placed. Using the biphasic zOLL successful synchronized cardioversion was achieved ON the first attempt with 200 J. She promptly returned to steady sinus rhythm. No bagging was required. Currently the pulse is 56 and regular blood pressure 106/76 and O2 sat is 98% on 2 L cannula. She is beginning to lighten. There were no obvious complications. Plan EKG now Home later today No driving for 24 hours Continue Eliquis 2. 5 mg twice daily Continue sotalol 160 mg twice daily CPAP mask nightly Continue all other home medications Office visit with EKG 2 weeks Findings and plan discussed with patient's son Cristopher and daughter Jennifer
--- NOTE | 2016-08-08 09:56 | EKG Report ---
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
[2016-08-08] MEDS: VALSARTAN 80 MG TABLET PO SCH (11:48)
[2016-08-08] MEDS: SOTALOL 80 MG TABLET PO SCH (11:49)
[2016-08-08] MEDS: PANTOPRAZOLE 40 MG TABLET PO SCH (11:49)
[2016-08-08] MEDS: APIXABAN 2.5 MG TABLET PO SCH (11:49)
[2016-08-08] MEDS: oxyCODONE ER 10 MG TABLET PO SCH (11:49)
[2016-08-08] MEDS: FUROSEMIDE 40 MG TABLET PO SCH (11:49)
[2016-08-08] MEDS: SODIUM CHLORIDE 0.9% 1,000 ML IV SCH (11:50)
[2016-08-08 12:19] VITALS: BP 101/61
[2016-08-08] MEDS: DILTIAZEM INJ 100 MG in SODIUM CHLORIDE 0.9% 100 ML IV SCH (14:24)
--- NOTE | 2016-08-08 14:30 | Discharge Summary ---
Hospital Course - Hospital Course Hospital Course: Ms. Ware is a 81-year-old female with a history of atrial fibrillation, COPD, sleep apnea, chronic back pain, anemia who presented for further evaluation of tachycardia from [facility] care. She ran out of her sotalol several days prior and upon arrival she was noted to be in atrial fibrillation with rapid ventricular response. She started on IV Cardizem for rate control. She was previously on Coumadin but this was stopped. She had a CHARITO VASC score of 3 and was started on low-dose Eliquis. She did not convert with IV Cardizem and was subsequently cardioverted to normal sinus rhythm on 08/[address] Powell. She has remained in normal sinus rhythm since that time. Her vital signs and lab work have been stable. She was noted to have abnormal lipid panel with triglycerides of 175, cholesterol 216, LDL 158, HDL 33. She was previously on statin therapy but reports she believes she just stopped taking this. We will restart her on Lipitor 20 mg p.o. nightly. At this time, she has met maximum benefit from hospitalization and will be discharged home in stable condition. She has been instructed that she is not allowed to drive for 24 hours. She is to continue her Eliquis 2.5 mg p.o. twice daily and sotalol 160 mg p.o. twice daily. We have encouraged her to continue being compliant with her CPAP mask. She will follow-up with Dr. Powell in clinic in 2 weeks with an EKG. Event note synchronized Cardioversion procedure note Preop diagnosis recurrent atrial fibrillation Postop diagnosis same The patient developed recurrent atrial fibrillation. She was restarted on sotalol 160 mg twice daily and Eliquis 2.5 mg twice daily. She failed to convert chemically. The cardioversion procedure discussed with the patient and with her son Cristopher and daughter Jennifer, all questions answered and consent form was signed. Continuous O2 sat monitoring was performed. The patient received IV Versed to achieve and maintain adequate anesthesia throughout the procedure. Apical and sternal patches were placed. Using the biphasic zOLL successful synchronized cardioversion was achieved ON the first attempt with 200 J. She promptly returned to steady sinus rhythm. No bagging was required. Currently the pulse is 56 and regular blood pressure 106/76 and O2 sat is 98% on 2 L cannula. She is beginning to lighten. There were no obvious complications. Plan EKG now Home later today No driving for 24 hours Continue Eliquis 2. 5 mg twice daily Continue sotalol 160 mg twice daily CPAP mask nightly Continue all other home medications Office visit with EKG 2 weeks Findings and plan discussed with patient's son Cristopher and daughter Jennifer - Time spent with patient Time with patient DS: Less than 30 minutes Diagnosis - Discharge Diagnosis (1) Atrial fibrillation with RVR Status: Resolved (2) Hypertension Status: Chronic (3) Obstructive sleep apnea Status: Chronic (4) COPD (chronic obstructive pulmonary disease) Status: Chronic (5) Overweight Status: Acute (6) GERD (gastroesophageal reflux disease) Status: Chronic (7) High risk medication use Status: Chronic (8) History of cardioversion Status: Chronic (9) Osteoarthritis Status: Chronic Specialty Discharge - Follow Up or Referrals Follow up with: Selvin Akhtar MD [Physician] - (Follow up with Dr. Akhtar in 2-3 weeks. ) Yo Powell MD [Physician] - 2 Weeks (Follow up with Dr. Powell in 2 weeks with EKG. ) Discharge Plan - Discharge Data Disposition: Disch To Home/Self Care Condition at Discharge: Stable Discharge Diet: heart healthy Activity: resume usual activities as tolerated Hygiene: no restrictions Weight Bearing at Discharge: full weight bearing Driving: not for (24 hours) Contact your physician if you experience:: fever over 101, Difficulty voiding, Nausea/Vomiting, Shortness of breath, pain uncontrolled by pain medications - Discharge Medications New Apixaban [Eliquis] 2.5 mg PO BID #60 tablet Atorvastatin [Lipitor] 20 mg PO BEDTIME #30 tablet oxyCODONE/ACETAMINOPHEN 5-325 [Percocet 5-325] 2 tablet PO Q12H PRN tablet PRN Reason: Pain Continue Esomeprazole Magnesium [Nexium] 40 mg PO DAILY PRN PRN Reason: Reflux ALPRAZolam [Xanax Xr] 0.5 mg PO TID PRN PRN Reason: Anxiety Senna Tab [Senokot] 8.6 mg PO DAILY PRN PRN Reason: Constipation oxyCODONE ER [OxyCONTIN] 10 mg PO BID Furosemide 40 mg PO QAM #30 tablet Valsartan 80 mg PO DAILY #30 tablet Sotalol HCl [Betapace AF] 160 mg PO BID #60 tablet Discontinued Oxycodone HCl/Acetaminophen [Oxycodone-Acetaminophen 10-325] 1 each PO Q12H PRN PRN Reason: Pain - Follow Up or Referral Follow Up: Selvin Akhtar MD [Physician] - (Follow up with Dr. Akhtar in 2-3 weeks. ) Yo Powell MD [Physician] - 2 Weeks (Follow up with Dr. Powell in 2 weeks with EKG. ) - Forms/Instructions Instructions: Atrial Fibrillation (DC), Cardioversion (DC) Exam - Constitutional Vitals: Period Temp Pulse Resp BP Sys/Abrams Pulse Ox Last 24 Hr 97.2 F-98.9 F 51-121 16-20 101-130/57-89 94-98 Exam: General appearance: Pleasant and cooperative. Overweight, no acute distress. - Head Head exam: Present: normal inspection, normocephalic, atraumatic. Absent: hematoma, laceration - Eye Eye exam: Present: EOMI. Absent: conjunctival injection, nystagmus, periorbital swelling, scleral icterus, laceration to eyelids Pupils: Present: PERRL. Absent: constricted, dilated, fixed, irregular, unequal - ENT ENT exam: Present: normal exam, normal external ear exam - Neck Neck exam: Present: normal inspection. Absent: lymphadenopathy, meningismus, tenderness, thyromegaly - Respiratory Respiratory exam: Present: clear to auscultation bilaterally. Absent: accessory muscle use, chest wall tenderness - Cardiovascular Cardiovascular exam: Present: regular rate and rhythm. Absent: carotid bruit, gallop, JVD, rubs - GI/Abdominal GI/Abdominal exam: Present: normal bowel sounds, soft. Absent: distended, firm , guarding, hernia, mass, tenderness, rebound. - Extremities Exam Extremities exam: Present: normal inspection, normal capillary refill. Upper extremity pulses 2+. Lower extremity pulses 2+. Absent: calf tenderness, edema -Musculoskeletal Exam Musculoskeletal: Present: No Fluid Collection, No Pain, Normal Range of Motion - Back Exam Back exam: Present: normal inspection. Absent: muscle spasm, vertebral tenderness - Neurological Exam Neurological exam: Present: alert, oriented X3, grossly intact without resting or essential tremor - Psychiatric Psychiatric exam: Present: normal affect, normal mood - Skin Skin exam: Present: normal color, warm, dry, intact. Absent: cyanosis, diaphoretic, rash, urticaria Discharge Results Labs on day of discharge: Labs from last 24 hours 08/08/16 08/08/16 04:53 04:53 WBC 9.0 RBC 4.78 Hgb 13.8 Hct 42.9 MCV 89.7 MCH 29 MCHC 32.2 RDW 14.8 Plt Count 397 MPV 8.8 L Neut % (Auto) 47.5 Lymph % (Auto) 39.9 [place] % (Auto) 9.8 Eos % (Auto) 1.8 Baso % (Auto) 0.7 Neut # (Auto) 4.3 Lymph # (Auto) 3.6 [place] # (Auto) 0.9 H Eos # (Auto) 0.2 Baso # (Auto) 0.1 Immature Gran % 0.3 Nucleated RBC % 0.0 Immature Gran # 0.03 Nucleated RBCs # 0.00 Sodium 140 Potassium 4.4 Chloride 102 Carbon Dioxide 28 Anion Gap 14.4 BUN 23 H Creatinine 0.90 GFR Calculation 71 BUN/Creatinine Ratio 25.00 H Glucose 108 H Calculated Osmolality 283.4 Calcium 8.7 Magnesium 2.2 DS: Provider Date of admission: 08/04/16 14:32 Primary care physician: . No PCP Attending physician on admission: Yo Powell MD Consults: 08/04/16 16:09 Consult to Dietitian [CONS] Routine Reason for Dietitian: Other 08/05/16 15:18 Consult to Case Mgmt/Social Srvs [CONS] Routine Reason for Case Mgmt/Social Srvs: Other Consult Comment: CARTER MALDONADO Discharging clinician: RACQUEL Schwartz Expected date of discharge: 08/08/16
[2016-08-08] MEDS ORDERED: ATORVASTATIN 20 MG TABLET PO SCH (21:00)
== END 2016-08-08 15:37 | disposition home health service (06) | DRG 310 ==
LOC: EDBD → EDUNIT# → N.ED 13:17 → OBSVTOIN 14:32 → INTOOBSV 14:32 → N.EDINP 14:32 → N.TELEN 16:01
PROVIDERS: ADMIT Internal Medicine Cardiovascular Disease; ATTEND Internal Medicine Cardiovascular Disease

== ENCOUNTER 2018-05-08 05:33 | Inpatient (IN) ==
[2018-05-08] MEDS ORDERED: DILTIAZEM 50 MG/10 ML VIAL IV STA (06:13)
[2018-05-08] MEDS ORDERED: ALBUTEROL NEB SOLN 5 MG/ML 20 ML/BOTTLE CONT NEB STA (06:13)
[2018-05-08] MEDS ORDERED: FUROSEMIDE 40 MG/4 ML VIAL IV STA (06:17)
[2018-05-08] MEDS ORDERED: NITROGLYCERIN 2% OINT 1 INCH/GM PACK TOP STA (06:17)
[2018-05-08] MEDS ORDERED: LEVOFLOXACIN INJ 500 MG in PREMIX 1 EACH IV STA (06:19)
[2018-05-08] MEDS ORDERED: ROCURONIUM 100 MG/10 ML VIAL IV STA (06:48)
[2018-05-08] MEDS ORDERED: ETOMIDATE 20 MG/10 ML VIAL IV STA (06:48)
[2018-05-08] MEDS ORDERED: methylPREDNISolone SOD SUC 125 MG/2 ML VIAL IV STA (07:01)
[2018-05-08] MEDS: PROPOFOL 1,000 MG/100 ML BOTTLE IV SCH ×2 (07:09→23:11)
[2018-05-08] MEDS: dilTIAZem Drip 125 MG/125 ML PREMIX IV SCH (07:15)
[2018-05-08] MEDS ORDERED: ASPIRIN 300 MG SUPP RECTAL STA (07:21)
[2018-05-08 07:43] LABS: ABG Base Excess -1.4 MMOL/L (-2.5-2.5); ABG HCO3 23.2 MMOL/L (20-26); ABG PH 7.378 (7.35-7.45); ABG TCO2 20.7 MMOL/L (23-27)
[2018-05-08 07:50] LABS: Basophils # 0.1 10*3/uL (0.0-0.2); Basophils % 0.4 % (0.0-0.8); Eosinophils % 0.1 % (0.00-10.9); Hematocrit 42.4 VOL% (35.7-47.0); Hemoglobin 12.8 GM/DL (12.0-16.0); Immature Granulocytes % 0.6 %; Immature Granulocytes Absolute 0.07 #; Lymphocytes # 0.7 10*3/uL (1.4-4.0); Lymphocytes % 6.6 % (21.3-54.2); Mean Corpuscular HGB Conc 30.2 GM/DL (32-36); Mean Corpuscular Hemoglobin 29 PG (27-34); Mean Corpuscular Volume 96.1 FL (87-102); Mean Platelet Volume 8.9 FL (9.6-12.0); Monocytes # 0.1 10*3/uL (0.11-0.8); Monocytes % 0.9 % (1.7-12.7); Neutrophils # 10.2 10*3/uL (1.4-7.4); Neutrophils % 91.4 % (38.7-73.9); Platelet Count 250 T/CUMM (130-400); Red Blood Count 4.41 MC/CUMM (3.8-5.5); Red Cell Distribution Width 13.1 % (9.3-17.3); White Blood Count 11.2 T/CUMM (4-12)
[2018-05-08 07:59] LABS: PT Patient Result 10.8 SECS; Partial Thromboplastin Time 28.3 SECS (0-40)
[2018-05-08 08:09] LABS: Band Neutrophils 1 % (0-10); Hypochromasia 1+; Lymphocytes 4 % (20-55); Platelet Estimate Adequate; Segmented Neutrophils 95 % (50-85); Total Cells Counted 100
[2018-05-08 08:12] LABS: Albumin 3.5 G/DL (3.4-5.0); Bilirubin,Total 0.5 MG/DL (0.2-1.0); Calcium 8.8 MG/DL (8.5-10.1); Osmolality,Calculated 283.7 MOS/KG (273-304); Potassium 4.2 MMOL/L (3.5-5.1); Total Protein 7.3 G/DL (6.4-8.3)
[2018-05-08] MEDS ORDERED: ACETAMINOPHEN 325 MG TABLET PO PRN (09:45)
[2018-05-08] MEDS ORDERED: GLUCAGON 1 MG VIAL IM PRN (09:45)
[2018-05-08] MEDS ORDERED: NON-FORMULARY MEDICATION (Dexlansoprazole [Dexilant] 60 MG) PO SCH (09:45)
[2018-05-08] MEDS ORDERED: DOCUSATE SODIUM 100 MG CAPSULE PO SCH (09:45)
[2018-05-08] MEDS ORDERED: DEXTROSE 50% 25 GM/50 ML SYRINGE IV PRN (09:45)
[2018-05-08] MEDS: SODIUM CHLORIDE 0.9% 1,000 ML IV SCH (10:54)
[2018-05-08] MEDS: SOTALOL 80 MG TABLET PO SCH ×2 (11:20→21:25)
[2018-05-08] MEDS: DOCUSATE SODIUM 100 MG/10 ML UDCUP PO SCH (11:20)
[2018-05-08] MEDS: APIXABAN 2.5 MG TABLET PO SCH ×2 (11:21→21:26)
[2018-05-08] MEDS: PANTOPRAZOLE 40 MG TABLET PO SCH (11:21)
[2018-05-08] MEDS: LOSARTAN 25 MG TABLET PO SCH (11:21)
[2018-05-08 11:47] LABS: Troponin I 0.281 NG/ML (0.00-0.045)
[2018-05-08] MEDS: INSULIN LISPRO 100 UNIT/ML SUBCUT SCH ×2 (12:40→18:12)
[2018-05-08] MEDS: fentaNYL INJ 1,250 MCG in SODIUM CHLORIDE 0.9% 225 ML IV PRN ×2 (12:42→21:30)
[2018-05-08 13:51] LABS: Troponin I 0.299 NG/ML (0.00-0.045)
[2018-05-09] MEDS: INSULIN LISPRO 100 UNIT/ML SUBCUT SCH ×4 (00:40→17:36)
[2018-05-09 02:56] LABS: ABG Base Excess 2.4 MMOL/L (-2.5-2.5); ABG HCO3 26.6 MMOL/L (20-26); ABG Oxygen Saturation 97.7 % (95-100); ABG PCO2 27.7 MM HG (35-48); ABG PH 7.548 (7.35-7.45); ABG PO2 91.1 MM HG (80-95); ABG TCO2 21.6 MMOL/L (23-27); Allen Test Positive; Pt O2 Delivery Device Ventilator
[2018-05-09] MEDS: fentaNYL INJ 1,250 MCG in SODIUM CHLORIDE 0.9% 225 ML IV PRN ×3 (03:53→17:40)
[2018-05-09] MEDS: dilTIAZem Drip 125 MG/125 ML PREMIX IV SCH ×2 (04:12→08:26)
[2018-05-09 05:27] LABS: Basophils % 0.1 % (0.0-0.8); Hematocrit 32.1 VOL% (35.7-47.0); Hemoglobin 10.1 GM/DL (12.0-16.0); Immature Granulocytes % 0.4 %; Immature Granulocytes Absolute 0.04 #; Lymphocytes # 1.2 10*3/uL (1.4-4.0); Lymphocytes % 11.5 % (21.3-54.2); Mean Corpuscular HGB Conc 31.5 GM/DL (32-36); Mean Corpuscular Hemoglobin 29 PG (27-34); Mean Platelet Volume 9.4 FL (9.6-12.0); Monocytes # 0.6 10*3/uL (0.11-0.8); Monocytes % 5.4 % (1.7-12.7); Neutrophils # 8.9 10*3/uL (1.4-7.4); Neutrophils % 82.6 % (38.7-73.9); Platelet Count 170 T/CUMM (130-400); Red Blood Count 3.49 MC/CUMM (3.8-5.5); Red Cell Distribution Width 13.2 % (9.3-17.3); White Blood Count 10.8 T/CUMM (4-12)
[2018-05-09 05:41] LABS: Calcium 8.3 MG/DL (8.5-10.1); Osmolality,Calculated 282.4 MOS/KG (273-304); Potassium 3.5 MMOL/L (3.5-5.1)
[2018-05-09] MEDS: SODIUM CHLORIDE 0.9% 1,000 ML IV SCH (06:29)
[2018-05-09] MEDS: PROPOFOL 1,000 MG/100 ML BOTTLE IV SCH ×4 (06:48→20:33)
[2018-05-09] MEDS: DOCUSATE SODIUM 100 MG/10 ML UDCUP PO SCH (09:42)
[2018-05-09] MEDS: SOTALOL 80 MG TABLET PO SCH ×2 (09:42→21:13)
[2018-05-09] MEDS: LOSARTAN 25 MG TABLET PO SCH (09:43)
[2018-05-09] MEDS: LANSOPRAZOLE ODT 30 MG TABLET PER TUBE SCH (09:43)
[2018-05-09] MEDS: APIXABAN 2.5 MG TABLET PO SCH ×2 (09:43→21:30)
[2018-05-09] MEDS: PANTOPRAZOLE 40 MG TABLET PO SCH (10:22)
[2018-05-09] MEDS ORDERED: FUROSEMIDE 40 MG/4 ML VIAL IV SCH (10:30)
[2018-05-10] MEDS: PROPOFOL 1,000 MG/100 ML BOTTLE IV SCH ×5 (00:40→22:30)
[2018-05-10] MEDS: fentaNYL INJ 1,250 MCG in SODIUM CHLORIDE 0.9% 225 ML IV PRN ×3 (01:40→18:15)
[2018-05-10] MEDS: INSULIN LISPRO 100 UNIT/ML SUBCUT SCH ×4 (02:11→18:26)
[2018-05-10 04:12] LABS: ABG Base Excess 1.9 MMOL/L (-2.5-2.5); ABG HCO3 26.1 MMOL/L (20-26); ABG Oxygen Saturation 98.5 % (95-100); ABG PCO2 24.7 MM HG (35-48); ABG PH 7.574 (7.35-7.45); ABG TCO2 20.3 MMOL/L (23-27); Allen Test Positive; Pt O2 Delivery Device Ventilator
[2018-05-10 04:13] LABS: Basophils % 0.2 % (0.0-0.8); Eosinophils % 0.1 % (0.00-10.9); Hematocrit 33.8 VOL% (35.7-47.0); Hemoglobin 10.8 GM/DL (12.0-16.0); Immature Granulocytes % 0.5 %; Immature Granulocytes Absolute 0.05 #; Lymphocytes # 1.5 10*3/uL (1.4-4.0); Lymphocytes % 16.5 % (21.3-54.2); Mean Corpuscular Hemoglobin 29 PG (27-34); Mean Corpuscular Volume 91.1 FL (87-102); Mean Platelet Volume 9.7 FL (9.6-12.0); Monocytes # 0.8 10*3/uL (0.11-0.8); Monocytes % 8.3 % (1.7-12.7); Neutrophils # 6.8 10*3/uL (1.4-7.4); Neutrophils % 74.4 % (38.7-73.9); Platelet Count 163 T/CUMM (130-400); Red Blood Count 3.71 MC/CUMM (3.8-5.5); Red Cell Distribution Width 13.3 % (9.3-17.3); White Blood Count 9.1 T/CUMM (4-12)
[2018-05-10 04:34] LABS: Calcium 8.6 MG/DL (8.5-10.1); Osmolality,Calculated 286.1 MOS/KG (273-304); Potassium 3.1 MMOL/L (3.5-5.1)
[2018-05-10] MEDS: SODIUM CHLORIDE 0.9% 1,000 ML IV SCH (05:36)
[2018-05-10] MEDS: dilTIAZem Drip 125 MG/125 ML PREMIX IV SCH (06:27)
[2018-05-10] MEDS: SOTALOL 80 MG TABLET PO SCH ×2 (09:00→20:16)
[2018-05-10] MEDS: DOCUSATE SODIUM 100 MG/10 ML UDCUP PO SCH (09:01)
[2018-05-10] MEDS: APIXABAN 2.5 MG TABLET PO SCH ×2 (09:01→20:16)
[2018-05-10] MEDS: LANSOPRAZOLE ODT 30 MG TABLET PER TUBE SCH (09:02)
[2018-05-10] MEDS: LOSARTAN 25 MG TABLET PO SCH (09:02)
[2018-05-10] MEDS: FUROSEMIDE 40 MG/4 ML VIAL IV SCH ×2 (09:03→16:53)
[2018-05-10] MEDS: POTASSIUM CHLORIDE 20 MEQ/15 ML UDCUP PER TUBE PRN ×4 (09:11→15:25)
[2018-05-10] MEDS ORDERED: ALBUTEROL/IPRATROPIUM 3 ML NEB RESP TX SCH (13:00)
[2018-05-10] MEDS: ALBUTEROL/IPRATROPIUM 3 ML NEB RESP TX SCH ×2 (15:00→19:22)
[2018-05-10] MEDS ORDERED: FUROSEMIDE 20 MG/2 ML VIAL ONE (16:46)
[2018-05-11] MEDS: INSULIN LISPRO 100 UNIT/ML SUBCUT SCH ×4 (00:37→21:01)
[2018-05-11 04:47] LABS: ABG Base Excess -0.2 MMOL/L (-2.5-2.5); ABG HCO3 24.3 MMOL/L (20-26); ABG Oxygen Saturation 98.5 % (95-100); ABG PCO2 37.4 MM HG (35-48); ABG PH 7.416 (7.35-7.45); ABG TCO2 21.5 MMOL/L (23-27); Allen Test Positive; Pt O2 Delivery Device Ventilator
[2018-05-11 04:52] LABS: Basophils % 0.4 % (0.0-0.8); Eosinophils # 0.1 10*3/uL (0.0-0.87); Eosinophils % 1.2 % (0.00-10.9); Hematocrit 36.2 VOL% (35.7-47.0); Hemoglobin 11.2 GM/DL (12.0-16.0); Immature Granulocytes % 0.4 %; Immature Granulocytes Absolute 0.04 #; Lymphocytes # 2.2 10*3/uL (1.4-4.0); Mean Corpuscular HGB Conc 30.9 GM/DL (32-36); Mean Corpuscular Hemoglobin 29 PG (27-34); Mean Corpuscular Volume 93.8 FL (87-102); Mean Platelet Volume 9.9 FL (9.6-12.0); Monocytes % 10.4 % (1.7-12.7); NRBC # 0.02 10*3/uL; Neutrophils # 6.1 10*3/uL (1.4-7.4); Neutrophils % 64.6 % (38.7-73.9); Platelet Count 193 T/CUMM (130-400); Red Blood Count 3.86 MC/CUMM (3.8-5.5); Red Cell Distribution Width 13.9 % (9.3-17.3); White Blood Count 9.4 T/CUMM (4-12)
[2018-05-11 04:53] LABS: Potassium 3.8 MMOL/L (3.5-5.1)
[2018-05-11] MEDS: PROPOFOL 1,000 MG/100 ML BOTTLE IV SCH ×3 (04:57→15:30)
[2018-05-11] MEDS: oxyCODONE/ACETAMINOPHEN 5-325 MG TABLET PO PRN ×3 (05:31→20:55)
[2018-05-11] MEDS: dilTIAZem Drip 125 MG/125 ML PREMIX IV SCH (06:37)
[2018-05-11] MEDS: ALBUTEROL/IPRATROPIUM 3 ML NEB RESP TX SCH ×4 (07:45→19:36)
[2018-05-11] MEDS: FUROSEMIDE 40 MG/4 ML VIAL IV SCH ×2 (08:34→15:26)
[2018-05-11] MEDS: LOSARTAN 25 MG TABLET PO SCH (08:35)
[2018-05-11] MEDS: APIXABAN 2.5 MG TABLET PO SCH ×2 (08:35→20:55)
[2018-05-11] MEDS: DOCUSATE SODIUM 100 MG/10 ML UDCUP PO SCH (08:35)
[2018-05-11] MEDS: POTASSIUM CHLORIDE 20 MEQ/15 ML UDCUP PER TUBE PRN (08:35)
[2018-05-11] MEDS: SOTALOL 80 MG TABLET PO SCH ×2 (08:35→20:54)
[2018-05-11] MEDS: LANSOPRAZOLE ODT 30 MG TABLET PER TUBE SCH (08:35)
[2018-05-11] MEDS: fentaNYL INJ 1,250 MCG in SODIUM CHLORIDE 0.9% 225 ML IV PRN ×2 (08:54→19:00)
[2018-05-11 09:41] LABS: ABG Base Excess 0.4 MMOL/L (-2.5-2.5); ABG HCO3 25.2 MMOL/L (20-26); ABG Oxygen Saturation 96.6 % (95-100); ABG PCO2 41.5 MM HG (35-48); ABG PH 7.402 (7.35-7.45); ABG TCO2 26.5 MMOL/L (23-27)
[2018-05-11 09:42] LABS: Pt O2 Delivery Device Ventilator
[2018-05-12] MEDS: INSULIN LISPRO 100 UNIT/ML SUBCUT SCH ×4 (02:12→18:09)
[2018-05-12] MEDS: PROPOFOL 1,000 MG/100 ML BOTTLE IV SCH ×2 (02:12→17:00)
[2018-05-12 03:07] LABS: Allen Test Positive; Pt O2 Delivery Device Ventilator
[2018-05-12 03:08] LABS: ABG Base Excess 2.2 MMOL/L (-2.5-2.5); ABG HCO3 26.3 MMOL/L (20-26); ABG Oxygen Saturation 97.5 % (95-100); ABG PCO2 39.2 MM HG (35-48); ABG PH 7.445 (7.35-7.45); ABG PO2 107.2 MM HG (80-95); ABG TCO2 27.5 MMOL/L (23-27)
[2018-05-12] MEDS: fentaNYL INJ 1,250 MCG in SODIUM CHLORIDE 0.9% 225 ML IV PRN (04:37)
[2018-05-12 05:49] LABS: Basophils # 0.1 10*3/uL (0.0-0.2); Basophils % 0.5 % (0.0-0.8); Eosinophils # 0.2 10*3/uL (0.0-0.87); Eosinophils % 2.2 % (0.00-10.9); Hematocrit 37.8 VOL% (35.7-47.0); Hemoglobin 11.7 GM/DL (12.0-16.0); Immature Granulocytes % 0.5 %; Immature Granulocytes Absolute 0.05 #; Lymphocytes # 1.3 10*3/uL (1.4-4.0); Lymphocytes % 11.5 % (21.3-54.2); Mean Corpuscular Hemoglobin 29 PG (27-34); Mean Corpuscular Volume 93.1 FL (87-102); Mean Platelet Volume 10.1 FL (9.6-12.0); Monocytes % 9.3 % (1.7-12.7); Neutrophils # 8.3 10*3/uL (1.4-7.4); Platelet Count 212 T/CUMM (130-400); Red Blood Count 4.06 MC/CUMM (3.8-5.5); Red Cell Distribution Width 13.6 % (9.3-17.3)
[2018-05-12 06:10] LABS: Calcium 7.8 MG/DL (8.5-10.1); Osmolality,Calculated 282.4 MOS/KG (273-304); Potassium 3.4 MMOL/L (3.5-5.1)
[2018-05-12] MEDS: dilTIAZem Drip 125 MG/125 ML PREMIX IV SCH (06:23)
[2018-05-12] MEDS: ALBUTEROL/IPRATROPIUM 3 ML NEB RESP TX SCH ×4 (06:45→18:40)
[2018-05-12] MEDS ORDERED: LORazepam 2 MG/1 ML VIAL IV PRN (08:28)
[2018-05-12] MEDS ORDERED: DEXTROSE 50% 25 GM/50 ML VIAL IV PRN (08:49)
[2018-05-12] MEDS ORDERED: MAGNESIUM SULF RIDER 2 GM in PREMIX 1 EACH IV ONE (09:00)
[2018-05-12] MEDS: SOTALOL 80 MG TABLET PO SCH ×2 (09:47→21:05)
[2018-05-12] MEDS: APIXABAN 2.5 MG TABLET PO SCH ×2 (09:47→21:06)
[2018-05-12] MEDS: FUROSEMIDE 40 MG/4 ML VIAL IV SCH ×2 (09:48→17:08)
[2018-05-12] MEDS: POTASSIUM CHLORIDE 20 MEQ/15 ML UDCUP PO SCH ×2 (09:48→21:06)
[2018-05-12] MEDS: LANSOPRAZOLE ODT 30 MG TABLET PER TUBE SCH (09:48)
[2018-05-12] MEDS: ONDANSETRON 4 MG/2 ML VIAL IV PRN ×2 (10:19→21:06)
[2018-05-12] MEDS: LOSARTAN 25 MG TABLET PO SCH (10:30)
[2018-05-12] MEDS: DOCUSATE SODIUM 100 MG/10 ML UDCUP PO SCH (10:49)
[2018-05-12] MEDS: oxyCODONE/ACETAMINOPHEN 5-325 MG TABLET PO PRN ×2 (14:44→21:05)
[2018-05-13] MEDS: INSULIN LISPRO 100 UNIT/ML SUBCUT SCH ×4 (00:51→18:34)
[2018-05-13 03:55] LABS: ABG Base Excess 2.1 MMOL/L (-2.5-2.5); ABG HCO3 26.2 MMOL/L (20-26); ABG Oxygen Saturation 96.1 % (95-100); ABG PCO2 42.4 MM HG (35-48); ABG PH 7.412 (7.35-7.45); ABG PO2 89.4 MM HG (80-95); ABG TCO2 23.8 MMOL/L (23-27); Allen Test Positive; Pt O2 Delivery Device Ventilator
[2018-05-13 04:04] LABS: Basophils % 0.2 % (0.0-0.8); Eosinophils # 0.1 10*3/uL (0.0-0.87); Eosinophils % 0.5 % (0.00-10.9); Hematocrit 38.7 VOL% (35.7-47.0); Immature Granulocytes % 0.5 %; Immature Granulocytes Absolute 0.06 #; Lymphocytes # 1.1 10*3/uL (1.4-4.0); Lymphocytes % 8.7 % (21.3-54.2); Mean Corpuscular Hemoglobin 28 PG (27-34); Mean Corpuscular Volume 91.5 FL (87-102); Mean Platelet Volume 9.8 FL (9.6-12.0); Monocytes # 0.9 10*3/uL (0.11-0.8); Monocytes % 7.7 % (1.7-12.7); Neutrophils % 82.4 % (38.7-73.9); Platelet Count 241 T/CUMM (130-400); Red Blood Count 4.23 MC/CUMM (3.8-5.5); Red Cell Distribution Width 13.4 % (9.3-17.3); White Blood Count 12.1 T/CUMM (4-12)
[2018-05-13 04:34] LABS: Calcium 8.9 MG/DL (8.5-10.1); Osmolality,Calculated 285.7 MOS/KG (273-304); Potassium 3.7 MMOL/L (3.5-5.1)
[2018-05-13] MEDS: dilTIAZem Drip 125 MG/125 ML PREMIX IV SCH (06:28)
[2018-05-13] MEDS: PROPOFOL 1,000 MG/100 ML BOTTLE IV SCH (06:29)
[2018-05-13] MEDS: ALBUTEROL/IPRATROPIUM 3 ML NEB RESP TX SCH ×4 (07:25→19:57)
[2018-05-13] MEDS: POTASSIUM CHLORIDE 20 MEQ/15 ML UDCUP PER TUBE PRN (08:10)
[2018-05-13] MEDS: APIXABAN 2.5 MG TABLET PO SCH ×2 (08:10→20:19)
[2018-05-13] MEDS: LANSOPRAZOLE ODT 30 MG TABLET PER TUBE SCH (08:10)
[2018-05-13] MEDS: DOCUSATE SODIUM 100 MG/10 ML UDCUP PO SCH (08:10)
[2018-05-13] MEDS: LOSARTAN 25 MG TABLET PO SCH (10:00)
[2018-05-13] MEDS ORDERED: SODIUM CHLORIDE 0.9% 500 ML IV PRN (13:52)
[2018-05-13] MEDS ORDERED: SODIUM CHLORIDE 0.9% 1,000 ML IV SCH (14:00)
[2018-05-13] MEDS: oxyCODONE/ACETAMINOPHEN 5-325 MG TABLET PO PRN (20:19)
[2018-05-13] MEDS: PHENOL 1.4% THROAT SPRAY 177 ML BOTTLE PO PRN (20:20)
[2018-05-14] MEDS: INSULIN LISPRO 100 UNIT/ML SUBCUT SCH ×4 (00:34→18:31)
[2018-05-14 04:28] LABS: Basophils % 0.4 % (0.0-0.8); Eosinophils # 0.3 10*3/uL (0.0-0.87); Eosinophils % 2.7 % (0.00-10.9); Hematocrit 37.5 VOL% (35.7-47.0); Hemoglobin 11.6 GM/DL (12.0-16.0); Immature Granulocytes % 0.4 %; Immature Granulocytes Absolute 0.04 #; Lymphocytes # 2.1 10*3/uL (1.4-4.0); Lymphocytes % 20.4 % (21.3-54.2); Mean Corpuscular HGB Conc 30.9 GM/DL (32-36); Mean Corpuscular Hemoglobin 29 PG (27-34); Mean Corpuscular Volume 93.8 FL (87-102); Mean Platelet Volume 9.8 FL (9.6-12.0); Monocytes # 1.1 10*3/uL (0.11-0.8); Monocytes % 10.4 % (1.7-12.7); Neutrophils # 6.7 10*3/uL (1.4-7.4); Neutrophils % 65.7 % (38.7-73.9); Platelet Count 248 T/CUMM (130-400); Red Cell Distribution Width 13.2 % (9.3-17.3); White Blood Count 10.2 T/CUMM (4-12)
[2018-05-14 04:32] LABS: Calcium 8.5 MG/DL (8.5-10.1); Osmolality,Calculated 280.7 MOS/KG (273-304); Potassium 3.7 MMOL/L (3.5-5.1)
[2018-05-14 04:36] LABS: Prealbumin 11.2 MG/DL (20-40)
[2018-05-14] MEDS: dilTIAZem Drip 125 MG/125 ML PREMIX IV SCH (05:41)
[2018-05-14] MEDS: PHENOL 1.4% THROAT SPRAY 177 ML BOTTLE PO PRN (05:42)
[2018-05-14] MEDS: ALBUTEROL/IPRATROPIUM 3 ML NEB RESP TX SCH ×4 (07:14→19:15)
[2018-05-14] MEDS ORDERED: MIDAZOLAM 10 MG/2 ML VIAL ONE (07:21)
[2018-05-14] MEDS: DOCUSATE SODIUM 100 MG/10 ML UDCUP PO SCH (09:00)
[2018-05-14] MEDS: APIXABAN 2.5 MG TABLET PO SCH ×2 (09:00→21:29)
[2018-05-14] MEDS: LANSOPRAZOLE ODT 30 MG TABLET PER TUBE SCH (09:00)
[2018-05-14] MEDS ORDERED: MIDAZOLAM 2 MG/2 ML VIAL IV ONE (09:52)
[2018-05-14] MEDS: LOSARTAN 25 MG TABLET PO SCH (10:27)
[2018-05-14] MEDS: oxyCODONE/ACETAMINOPHEN 5-325 MG TABLET PO PRN (21:28)
[2018-05-15] MEDS: INSULIN LISPRO 100 UNIT/ML SUBCUT SCH ×5 (02:54→23:34)
[2018-05-15 04:10] LABS: Basophils % 0.3 % (0.0-0.8); Eosinophils # 0.3 10*3/uL (0.0-0.87); Hematocrit 36.4 VOL% (35.7-47.0); Immature Granulocytes % 0.4 %; Immature Granulocytes Absolute 0.04 #; Lymphocytes # 1.6 10*3/uL (1.4-4.0); Lymphocytes % 16.9 % (21.3-54.2); Mean Corpuscular HGB Conc 30.2 GM/DL (32-36); Mean Corpuscular Hemoglobin 29 PG (27-34); Mean Corpuscular Volume 94.5 FL (87-102); Mean Platelet Volume 9.3 FL (9.6-12.0); Monocytes % 10.2 % (1.7-12.7); Neutrophils # 6.7 10*3/uL (1.4-7.4); Neutrophils % 69.2 % (38.7-73.9); Platelet Count 251 T/CUMM (130-400); Red Blood Count 3.85 MC/CUMM (3.8-5.5); Red Cell Distribution Width 13.1 % (9.3-17.3); White Blood Count 9.6 T/CUMM (4-12)
[2018-05-15 04:27] LABS: Calcium 8.9 MG/DL (8.5-10.1); Osmolality,Calculated 274.8 MOS/KG (273-304); Potassium 3.7 MMOL/L (3.5-5.1)
[2018-05-15] MEDS: dilTIAZem Drip 125 MG/125 ML PREMIX IV SCH (06:43)
[2018-05-15] MEDS: ALBUTEROL/IPRATROPIUM 3 ML NEB RESP TX SCH ×4 (07:20→19:09)
[2018-05-15] MEDS: LOSARTAN 25 MG TABLET PO SCH ×2 (08:50→21:42)
[2018-05-15] MEDS: DOCUSATE SODIUM 100 MG/10 ML UDCUP PO SCH (08:50)
[2018-05-15] MEDS: SOTALOL 80 MG TABLET PO SCH ×2 (08:50→21:42)
[2018-05-15] MEDS: LANSOPRAZOLE ODT 30 MG TABLET PER TUBE SCH (08:51)
[2018-05-15] MEDS: APIXABAN 2.5 MG TABLET PO SCH ×2 (08:51→21:42)
[2018-05-15] MEDS: oxyCODONE/ACETAMINOPHEN 5-325 MG TABLET PO PRN ×2 (12:29→17:52)
[2018-05-15] MEDS: ONDANSETRON 4 MG/2 ML VIAL IV PRN (14:15)
[2018-05-15] MEDS ORDERED: LORazepam 1 MG TABLET PO PRN (14:34)
[2018-05-15] MEDS ORDERED: ALUMINUM/MAGNES/SIMETH MAX STR 30 ML UDCUP PO PRN (15:55)
[2018-05-16 05:01] LABS: ABG Base Excess 1.9 MMOL/L (-2.5-2.5); ABG HCO3 26.1 MMOL/L (20-26); ABG Oxygen Saturation 94.6 % (95-100); ABG PCO2 41.9 MM HG (35-48); ABG PH 7.413 (7.35-7.45); ABG PO2 71.8 MM HG (80-95); ABG TCO2 23.8 MMOL/L (23-27)
[2018-05-16 06:08] LABS: Basophils # 0.1 10*3/uL (0.0-0.2); Basophils % 0.3 % (0.0-0.8); Eosinophils % 0.1 % (0.00-10.9); Hematocrit 37.3 VOL% (35.7-47.0); Hemoglobin 11.9 GM/DL (12.0-16.0); Immature Granulocytes % 0.8 %; Immature Granulocytes Absolute 0.12 #; Lymphocytes # 1.3 10*3/uL (1.4-4.0); Lymphocytes % 8.9 % (21.3-54.2); Mean Corpuscular HGB Conc 31.9 GM/DL (32-36); Mean Corpuscular Hemoglobin 29 PG (27-34); Mean Corpuscular Volume 92.1 FL (87-102); Mean Platelet Volume 9.3 FL (9.6-12.0); Monocytes # 0.8 10*3/uL (0.11-0.8); Monocytes % 5.6 % (1.7-12.7); Neutrophils # 12.1 10*3/uL (1.4-7.4); Neutrophils % 84.3 % (38.7-73.9); Platelet Count 256 T/CUMM (130-400); Red Blood Count 4.05 MC/CUMM (3.8-5.5); Red Cell Distribution Width 13.2 % (9.3-17.3); White Blood Count 14.4 T/CUMM (4-12)
[2018-05-16 06:21] LABS: Calcium 8.8 MG/DL (8.5-10.1); Osmolality,Calculated 278.5 MOS/KG (273-304)
[2018-05-16] MEDS: INSULIN LISPRO 100 UNIT/ML SUBCUT SCH ×2 (06:27→11:44)
[2018-05-16] MEDS: ALBUTEROL/IPRATROPIUM 3 ML NEB RESP TX SCH ×3 (07:50→14:38)
[2018-05-16] MEDS: LOSARTAN 25 MG TABLET PO SCH (09:26)
[2018-05-16] MEDS: APIXABAN 2.5 MG TABLET PO SCH (09:26)
[2018-05-16] MEDS: SOTALOL 80 MG TABLET PO SCH (09:26)
[2018-05-16] MEDS: DOCUSATE SODIUM 100 MG/10 ML UDCUP PO SCH (09:26)
[2018-05-16] MEDS: LANSOPRAZOLE ODT 30 MG TABLET PER TUBE SCH (09:27)
[2018-05-16 11:44] VITALS: BP 130/75
== END 2018-05-16 14:38 | disposition home health service (06) | DRG 207 ==
LOC: EDUNIT# → EDBD → N.ED 05:33 → N.EDINP 06:22 → N.CC 07:39 → N.TELEN 05-15 16:06
PROVIDERS: ADMIT Family Medicine; ATTEND Family Medicine